=== PATIENT | male | born 1990 | race Hispanic/Latino ===

== ENCOUNTER 2020-06-08 15:34 | Emergency (ER) | payer SELFPAY ==
--- NOTE | ~2020-06-08 | XR_ITS ---
EXAMINATION: XR chest 2V EXAM DATE: 06/08/2020 16:37 INDICATION: Mid chest pain wrapping around to back. Shortness of breath. TECHNIQUE: Frontal and lateral projections of the chest obtained and reviewed. There is no prior elinor dy for comparison. FINDINGS: Small amount of left basilar atelectasis or pneumonia. The lungs are otherwise clear. The re are no pleural effusions. The cardiomediastinal silhouette is within normal limits. There is no pneumothorax suspected. The bones and soft tissues are unremarkable. IMPRESSION: Subsegmental left basilar opacity, probably atelectasis or pneumonia Reviewed, dictated and finalized at location A. IMPRESSION: Subsegmental left basilar opacity, probably atelectasis or pneumoni a
[2020-06-08 15:41] VITALS: BP 123/83; PULSE 75; RESP 14; TEMP 37.1; O2SAT 99
--- NOTE | 2020-06-08 15:45 | ECG_ITS ---
Measurements Intervals [place] Rate: 77 P: 27 NE: 139 QRS: 51 QRSD: 98 T: 23 QT: 363 QTc: 411 Interpretive Statements SINUS RHYTHM NORMAL ECG Electronically Signed On 06-08-2020 15:57:58 CDT by Marty Sarah D.O.
[2020-06-08 15:46] VITALS: PULSE 79
[2020-06-08 15:58] LABS: Basophils Absolute Auto 0.1 K/mm3 (0.0-0.1); Basophils Percent Auto 0.7 % (0.2-1.2); Eosinophils Absolute Auto 0.2 K/mm3 (0-0.3); Eosinophils Percent Auto 3.1 % (0-4.4); Hematocrit 44.3 % (42.0-52.0); Hemoglobin 15.1 g/dL (14.0-18.0); Immature Granulocyte Absolute 0.02 K/mm3 (0.00-0.031); Immature Granulocyte Percent A 0.3 % (0-0.5); Lymphocytes Absolute Auto 3.03 K/mm3 (0.9-3.2); Lymphocytes Percent Auto 41.2 % (18.3-44.2); Mean Corpuscular HGB Conc 34.1 g/dl (32-36); Mean Corpuscular Hemoglobin 29.4 pg (26-34); Mean Corpuscular Volume 86.4 fl (80-100); Mean Platelet Volume 10.5 fl (7.4-10.4); Monocytes Absolute Auto 0.5 K/mm3 (0.1-0.6); Monocytes Percent Auto 6.4 % (2.6-8.5); Neutrophils Absolute Auto 3.6 K/mm3 (1.3-6.7); Neutrophils Percent Auto 48.3 % (45.5-73.1); Platelet Count Result 222 k/mm3 (150-375); Red Blood Count 5.13 M/mm3 (4.6-6.20); Red Cell Distribution Width 13.6 % (11.5-14.5); White Blood Count 7.4 K/mm3 (4.5-10.0)
[2020-06-08 16:07] LABS: INR 0.9; Prothrombin Time 12.8 Seconds (11.1-14.7)
[2020-06-08 16:08] LABS: Partial Thromboplastin Time 25.7 SECONDS (22.3-36.8)
--- NOTE | 2020-06-08 16:08 | ED.CHESTPAIN ---
HPI - Chest Pain General Chief Complaint: Chest Pain Stated Complaint: Chest aches Time Seen by Provider: 06/08/20 15:40 Source: patient and family Mode of arrival: ambulatory Limitations: no limitations and language barrier History of Present Illness HPI narrative: Patient is 30 years old [place] male presents with general back pain started 1 week ago, patient been complaining of chest pain, worse with breathing and certain movement. Patient denies any fever, chills, nausea, vomiting, coughing, shortness of breath. 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 Lately patient needed gravel road around the he is house which is probably the underlying cause of his back pain and chest pain lately. Related Data Home Medications Medication Instructions Recorded Confirmed No Home Medications 06/08/20 06/08/20 Allergies Allergy/AdvReac Type Severity Reaction Status Date / Time No Known Allergies Allergy Verified 06/08/20 15:45 Review of Systems Review of Systems: Narrative: CONSTITUTIONAL: Denies fever, chills, or sweats. EYES: Denies visual changes, redness, or discharge. ENT: Denies rhinorrhea, congestion, sore throat, or otalgia. CARDIOVASCULAR: Denies chest pain, palpitations, or edema. RESPIRATORY: Denies cough or dyspnea. GASTROINTESTINAL: Denies abdominal pain, nausea, vomiting, or diarrhea. GENITOURINARY: Denies dysuria or hematuria. SKIN: Denies rash or itching. MUSCULOSKELETAL: Denies back pain, joint pain, or myalgia. NEUROLOGIC: Denies headache, numbness, or weakness. PSYCHIATRIC: Denies anxiety or depression. [facility] Social History Social History Gender identity (if verbalized by the patient): Male Exam Narrative: Exam Narrative: General appearance: Well-developed, well-nourished Skin: Normal color Head: Normocephalic, nontraumatic Eyes: Clear conjunctiva ENT: Oropharynx normal, ears normal, nose normal Neck: Supple, nontender Chest and respiratory: Airway patent, no respiratory distress, no accessory muscle use Heart: Regular rate/rhythm Abdomen: Soft, nontender, no organomegaly, quiet bowel sounds Vascular: Normal peripheral pulses, normal capillary refill. 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 Labs, chest x-ray ordered. Further plan to follow Differential Diagnosis Differential diagnosis: Likely atypical chest pain, costochondritis and chest pain Lab Data Result diagrams: 06/08/20 15:52 06/08/20 15:52 Labs: Lab Results 06/08/20 06/08/20 06/08/20 Range/Units 15:52 15:52 15:52 WBC 7.4 (4.5-10.0) K/mm3 RBC 5.13 (4.6-6.20) M/mm3 Hgb 15.1 (14.0-18.0) g/dL Hct 44.3 (42.0-52.0) % MCV 86.4 (80-100) fl MCH 29.4 (26-34) pg MCHC 34.1 (32-36) g/dl RDW 13.6 (11.5-14.5) % Plt Count 222 (150-375) k/mm3 MPV 10.5 H (7.4-10.4) fl Immature Gran % (Auto) 0.3 (0-0.5) % Neut % (Auto) 48.3
[2020-06-08 16:16] LABS: Anion Gap 6 mmol/L (8-16); Blood Urea Nitrogen 15 mg/dL (9-20); Calcium 8.8 mg/dL (8.4-10.2); Carbon Dioxide 28 mmol/L (22-30); Chloride 104 mmol/L (98-107); Estimated CRCL calculation 85 ml/min; Estimated Glomerular Filt Rate > 60; Glucose 121 mg/dL (75-110); Potassium 4.1 mmol/L (3.4-5.0); Sodium 138 mmol/L (137-145)
[2020-06-08 16:24] LABS: Troponin I < 0.012 ng/mL (0.000-0.034)
[2020-06-08] MEDS: KETOROLAC 30 MG/ML VIAL (*BKC) IV PUSH (16:26)
[2020-06-08 17:18] VITALS: BP 109/78; PULSE 70; RESP 16; O2SAT 99
[2020-06-08 18:13] VITALS: BP 117/84; PULSE 76; RESP 18; O2SAT 100
== END 2020-06-08 18:13 | disposition home or self-care (01) ==
PROVIDERS: Emergency Provider Emergency Medicine
DX: M54.9 Dorsalgia, unspecified (principal); R07.1 Chest pain on breathing; R91.8 Other nonspecific abnormal finding of lung field
CPT/HCPCS: 36415; 71046; 80048; 84484; 85025; 85610; 85730; 93005; 96374; 99284; J1885

== ENCOUNTER 2021-07-14 11:37 | Emergency (ER) | payer SELFPAY ==
--- NOTE | ~2021-07-14 | CT_ITS ---
EXAMINATION: CT abdomen pelvis w con DATE: 07/14/2021 15:00 INDICATION: right inguinal discomfort/swelling TECHNIQUE: Computed tomography (CT) of the abdomen and pelvis was performed with 100 mL Omnipaque-350 intravenous contrast. The dose-length product was 333.80 mGy-cm. COMPARISON: None FINDINGS: Lower thorax: Bibasilar atelectasis. Liver: Steatosis. Biliary/Gallbladder: Gallbladder is normal. No bile duct dilation. Spleen: Normal. Pancreas: No mass or duct dilation. Adrenals:No mass. Kidneys: No mass, stone, or hydronephrosis. GI tract: No small or large bowel dilation. Normal appendix. Mesentery/Peritoneum: No ascites, mass, or free air. Retroperitoneum: No mass. Pelvis: Pelvic organs are within normal limits. Bones/Soft Tissues: Subcutaneous stranding with dermal plug/eschar anterior to the pubic symphysis, s lightly to the right of midline and anterior to the inferomedial portion of the inguinal canal on the right. No acute osseous finding. Additional Findings: None. IMPRESSION: Cutaneous/subcutaneous infectious/inflammatory process anterior to the pubic symphysis and inferomedi al right inguinal canal, may reflect an inflamed cyst, pustule, etc. No other acute process detected in the abdomen or pelvis. Reviewed, dictated and finalized at location K. IMPRESSION: Cutaneous/subcutaneous infectious/inflammatory process anterior to the pubic sy mphysis and inferomedial right inguinal canal, may reflect an inflamed cyst, pu stule, etc. No other acute process detected in the abdomen or pelvis.
[2021-07-14 11:39] VITALS: BP 137/88; PULSE 102; RESP 14; TEMP 36.6; O2SAT 100
[2021-07-14 14:27] LABS: Basophils Percent Auto 0.7 % (0.2-1.2); Eosinophils Absolute Auto 0.1 K/mm3 (0-0.3); Eosinophils Percent Auto 1.3 % (0-4.4); Hematocrit 44.1 % (42.0-52.0); Hemoglobin 14.8 g/dL (14.0-18.0); Immature Granulocyte Absolute 0.01 K/mm3 (0.00-0.031); Immature Granulocyte Percent A 0.2 % (0-0.5); Lymphocytes Absolute Auto 2.15 K/mm3 (0.9-3.2); Lymphocytes Percent Auto 35.4 % (18.3-44.2); Mean Corpuscular HGB Conc 33.6 g/dl (32-36); Mean Corpuscular Volume 89.5 fl (80-100); Monocytes Absolute Auto 0.7 K/mm3 (0.1-0.6); Neutrophils Absolute Auto 3.1 K/mm3 (1.3-6.7); Neutrophils Percent Auto 51.4 % (45.5-73.1); Platelet Count Result 202 k/mm3 (150-375); Red Blood Count 4.93 M/mm3 (4.6-6.20); White Blood Count 6.1 K/mm3 (4.5-10.0)
[2021-07-14 14:28] VITALS: BP 122/83; PULSE 66; RESP 16; O2SAT 100
[2021-07-14 14:38] LABS: Anion Gap 9 mmol/L (8-16); Blood Urea Nitrogen 13 mg/dL (9-20); Calcium 9.2 mg/dL (8.4-10.2); Carbon Dioxide 29 mmol/L (22-30); Chloride 98 mmol/L (98-107); Estimated CRCL calculation 139 ml/min; Estimated Glomerular Filt Rate > 60; Glucose 354 mg/dL (65-110); Potassium 4.3 mmol/L (3.4-5.0); Sodium 136 mmol/L (137-145)
--- NOTE | 2021-07-14 15:12 | ED.ABDPAIN ---
HPI - Abdominal Pain General Chief Complaint: Abdominal Pain Stated Complaint: hernia pain Time Seen by Provider: 07/14/21 13:58 History of Present Illness HPI narrative: Patient is a 31-year-old male who presents ER with pain chest above his penis in his right inguinal region. Mild swelling and tenderness. Reports began after lifting a heavy wheelbarrow. Concerned he may have a hernia. He reports he is having normal bowel movements. He is passing gas. No abdominal pain. No urinary frequency urgency or dysuria. He does note that he has been having issues with a white discharge and burning discomfort around the head of his penis. His PCP is prescribed triamcinolone cream and does not seem to be fully helping the issue. Denies history of diabetes. Has not had issues like this before. No difficulty with retraction of foreskin. Related Data Allergies Allergy/AdvReac Type Severity Reaction Status Date / Time No Known Allergies Allergy Verified 07/14/21 11:38 Review of Systems Review of Systems: All systems reviewed & are unremarkable except as noted in HPI and below Constitutional: Constitutional: Denies chills, Denies fever(s) and Denies weakness ENT: Denies nasal congestion and Denies sore throat Cardiovascular: Cardiovascular: Denies chest pain, Denies rapid heart rate and Denies radiating jaw, neck or arm pain Respiratory: Respiratory: Denies cough, Denies dyspnea and Denies wheezing Gastrointestinal: Gastrointestinal: Denies abdominal pain, Denies diarrhea, Denies nausea and Denies vomiting Comments: Swelling in the inguinal/suprapubic region. Genitourinary: Genitourinary: Denies dysuria, Denies penile discharge, Denies testicular pain and Denies urinary frequency Comments: White discharge around the glans PMFSH Past Medical History Medical History (Updated 07/14/21 @ 21:11 by Jeffy Soto MD) Healthy adult male Surgical History Surgical History (Updated 07/14/21 @ 21:11 by Jeffy Soto MD) No pertinent past surgical history Social History Social History Gender identity (if verbalized by the patient): Male Exam Narrative: GENERAL: Well-appearing, well-nourished, and in no acute distress. HEAD: Normocephalic, atraumatic. ENT: Mucous membranes moist. CHEST: Clear to auscultation. No respiratory distress. HEART: Regular rate and rhythm. Normal peripheral pulses. ABDOMEN: Soft, nontender, nondistended. : Uncircumcised penis, when retracted there is a band of the foreskin that is tighter with slight irritation that patient reports is chronic. There is scant white discharge in the area, unsure if this is related to the triamcinolone cream or to his discharge he has been reporting. No hernia noted. EXTREMITIES: Normal range of motion. No edema. SKIN: Warm, dry, no rash. Suprapubic region in the right inguinal area has an area of folliculitis with induration no larger than a dime. Skin is slightly erythematous but not fiery red. No purulent discharge. No fluctuance. Infection is an area where patient has shaved pubic hair. NEURO: Alert and oriented x3. PSYCH: Normal mood and affect. Course Course Emergency Course: Patient had educated about multiple diagnoses and treatment plan. Him and his significant other who is interpreting verbalized understanding. Will be discharged with Diflucan, antibiotics, pain medication. He has been instructed to follow-up with his primary care doctor in the next 3 days. Discussed that he is not being started on metformin due to the fact that he is received IV contrast and must wait 48 hours. We did attempt to contact PCP office but they are closed since it is weekend. We have also discussed using warm compresses to soften the area of infection and help promote drainage if there is a early forming abscess or any purulence I can be expressed from the follicles. Vital Signs Vital signs: Vital Signs Temp
[2021-07-14 15:24] VITALS: BP 129/95; PULSE 64; RESP 16; O2SAT 100
[2021-07-14 17:22] VITALS: BP 123/81; PULSE 60; RESP 18; O2SAT 99
[2021-07-14 18:20] VITALS: BP 131/93; PULSE 83; RESP 18; O2SAT 97
[2021-07-14 18:24] LABS: Hemoglobin A1C 12.1 % (<5.7)
== END 2021-07-14 18:20 | disposition home or self-care (01) ==
PROVIDERS: Emergency Provider Emergency Medicine; PCP Physician Assistant
DX: L73.9 Follicular disorder, unspecified (principal); N48.1 Balanitis; E11.9 Type 2 diabetes mellitus without complications
CPT/HCPCS: 36415; 74177; 80048; 83036; 85025; 99284; Q9967

== ENCOUNTER 2021-11-30 08:15 | Outpatient (CLI) | payer SELFPAY ==
--- NOTE | ~2021-11-30 | XR_ITS ---
EXAMINATION: XR chest 2V DATE: 11/30/2021 08:38 INDICATION: Chest pain TECHNIQUE: PA and lateral views of the chest are obtained. COMPARISON: 06/08/2020 FINDINGS: The lungs are free of acute opacities. No pleural effusion or pneumothorax. The cardiomedia stinal silhouette is normal. The visualized bones and soft tissues are unremarkable. IMPRESSION: 1. No acute cardiopulmonary abnormality. Reviewed, dictated and finalized at location B.
== END 2021-11-30 08:16 | disposition home or self-care (01) ==
PROVIDERS: PCP Physician Assistant; Visit Provider Physician Assistant
DX: R07.9 Chest pain, unspecified (principal); R74.01 Elevation of levels of liver transaminase levels
CPT/HCPCS: 71046

== ENCOUNTER 2022-08-30 12:23 | Emergency (ER) | payer SELFPAY ==
--- NOTE | ~2022-08-30 | XR_ITS ---
XR elbow LT 2V DATE: 08/30/2022 13:14 INDICATION: Sharp antecubital injury TECHNIQUE: AP and lateral views COMPARISON: None FINDINGS: No fracture or dislocation, joint effusion, periosteal reaction or bone destruction. Joint spaces are well preserved. No radiopaque soft tissue foreign body or subcutaneous emphysema. IMPRESSION: Negative Reviewed, dictated and finalized at location [] IMPRESSION: Negative
[2022-08-30 12:29] VITALS: BP 132/78; PULSE 78; RESP 16; TEMP 36.6; O2SAT 100
[2022-08-30] MEDS: TETANUS,DIPHTHERIA,AC PERTUSSIS ADULT (0.5 ML) BOOSTRIX IM (12:58)
--- NOTE | 2022-08-30 13:43 | ED.SKABFB ---
HPI - Skin/Abscess/Foreign Bdy General Chief complaint: Skin/Abscess/Foreign Body Stated complaint: laceration LUE Time Seen by Provider: 08/30/22 12:39 History of Present Illness HPI narrative: This 32-year-old male patient with no significant past medical history related to today's complaint presents to the emergency room with complaints of having cut his left arm on a broken mirror today Just prior to arrival that he was attempting to move. Patient does not have an updated tetanus. He has an e commerce manager at the bedside with him speaking for him. Bleeding is currently controlled upon arrival. No other injuries or complaints. Related Data Allergies Allergy/AdvReac Type Severity Reaction Status Date / Time No Known Allergies Allergy Verified 07/14/21 11:38 Review of Systems Review of Systems: 12 point review of systems was performed and is otherwise negative except as noted in HPI. All systems reviewed & are unremarkable except as noted in HPI and below PMFSH Past Medical History Medical History Healthy adult male Surgical History Surgical History No pertinent past surgical history Social History Social History Gender identity (if verbalized by the patient): Male Exam Const: General: healthy appearing, no acute distress and alert Nutritional Appearance: well nourished Orientation/consciousness: patient oriented x3 Limitations: no limitations HENMT: Head: normal to inspection Face/Nose/Sinus: Normal external nose present, Normal nares present and no nasal discharge noted Mouth: Yes Normal oral and palatal mucosa present Throat: posterior oropharynx normal and uvula midline Eyes: Conjunctivae: conjunctivae normal Neck: Neck: normal visual inspection, no lymphadenopathy and no meningeal signs Chest: Chest palpation & inspection: normal inspection of the chest Resp: Effort & Inspection: normal respiratory effort Auscultation: clear to auscultation bilaterally Cardio: Rate: regular rate Rhythm: regular rhythm Heart sounds: no murmurs GI: Inspection: non-distended GI Palp: Yes Soft to palpation and Yes Tenderness to palpation present (GI) Auscultation: normal bowel sounds Back/Spine/Pelvis: Back: no CVA tenderness Skin: General skin exam: normal color Rashes: no rashes Wounds: wounds noted ( Laceration left arm x2) laceration left arm size ( 3 cm), drainage ( bleeding is controlled) and margins ( sharp) Other: there is a 2nd laceration to the left arm at the antecubital fossa region superior to the above-mentioned laceration. It measures 2 cm in length. Gaping. Bleeding controlle Neuro: General: patient oriented x3, moves all extremities, no meningeal signs and no focal motor deficits Cranial nerves: Yes Nystagmus not present Speech: normal speech Gait exam (Neuro): Normal gait present Extrem: General: normal to inspection, no clubbing, cyanosis or edema and no pedal edema Course Course Emergency Course: differential diagnosis: laceration, foreign body in left arm VSS imaging: negative for any foreign body or acute injury. Tetanus was updated today. See procedures for laceration repair. Vital Signs Vital signs: Vital Signs Temperature 97.9 F 08/30/22 12:29 Pulse Rate 78 08/30/22 12:29 Respiratory Rate 16 08/30/22 12:29 Blood Pressure 132/78 08/30/22 12:29 Pulse Oximetry 100 08/30/22 12:29 Oxygen Delivery Room Air 08/30/22 12:29 Temperature 97.9 F 08/30/22 12:29 Pulse Rate 78 08/30/22 12:29 Respiratory Rate 16 08/30/22 12:29 Blood Pressure 132/78 08/30/22 12:29 Pulse Oximetry 100 08/30/22 12:29 Oxygen Delivery Room Air 08/30/22 12:29 Procedures Laceration Laceration 1: Date: 08/30/22 Time: 13:48 Site: other ( Left
[2022-08-30] MEDS: LIDOCAINE HCL 1% LOCAL INJ 10 ML VIAL (14:00)
== END 2022-08-30 14:12 | disposition home or self-care (01) ==
PROVIDERS: Emergency Provider Nurse Practitioner Adult Health; PCP Physician Assistant
DX: S41.112A Laceration without foreign body of left upper arm, initial encounter (principal); Z23 Encounter for immunization; W25.XXXA Contact with sharp glass, initial encounter
CPT/HCPCS: 12002; 73070; 90471; 90715; 99283